=== PATIENT | female | born 1960 | race Caucasian/White ===

== ENCOUNTER 2024-11-02 08:46 | Emergency (ER) | payer OTHER, MEDICARE ==
[~2024-11-02] VITALS: Ht 165.1 cm; Wt 72.7 kg
--- NOTE | 2024-11-02 09:07 | ED.PDOC ---
HPI (NEURO) HPI Comments 64 year old female JERSON presents to the ED with chief complaint of sudden weakness and numbness. EMS reports that the patient had spinal surgery to -4 for spinal stenosis performed on 10/30, being discharged yesterday. EMS relays that the patient had woken up to go to the bathroom this morning about an hour ago when all of a sudden she could not move or feel sensation to her whole body. EMS states patient is now able to move her extremities slightly, but still has decreased sensation. Patient states she currently feels weak at this time and did urinate on herself due to not being able to go to the bathroom. Patient notes her surgery was performed in [place] by Dr. Bullard. Patient denies any dizziness, headache, SOB, chest pain, or blurred vision. 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, Medications, Allergies Information Source: Patient, Emergency Med Personnel Mode of Arrival: EMS Severity: Moderate Dizziness/Weakness Severity: Unable to do activities Timing: Hours Duration: Since onset Prehospital treatment: None Weakness Location: Generalized Numbness Location: Generalized Onset: At rest Circumstances: Spontaneous Symptoms: Weakness, Numbness Before: Normal During: Incontinence (Bladder) After: Normal Mentation Modifying factors: Nothing Past Medical History PAST MEDICAL HISTORY: Denies Surgical History (Other): Spinal stenosis surgery OUTCOMES MANAGER History: Denies all OUTCOMES MANAGER Hx Family History Family History: Reviewed,noncontributory to illness Social History Smoker: Non-Smoker Alcohol: Denies ETOH Use Drugs: Denies Drug Use Lives In: Home Constitutional: denies: chills, diaphoresis, fatigue, fever, malaise, sweats, weakness, others EENTM: denies: blurred vision, double vision, ear bleeding, ear discharge, ear drainage, ear pain, ear ringing, eye pain, eye redness, hearing loss, mouth pain, mouth swelling, nasal discharge, nose bleeding, nose congestion, nose pain, photophobia, tearing, throat pain, throat swelling, voice changes, others Respiratory: denies: cough, hemoptysis, orthopnea, SOB at rest, shortness of breath, SOB with excertion, stridor, wheezing, others Cardiovascular: denies: chest pain, dizzy spells, diaphoresis, Dyspnea on exertion, edema, irregular heart beat, left arm pain, lightheadedness, palpitations, PND, syncope, others Gastrointestinal: denies: abdomen distended, abdominal pain, blood streaked bowels, constipated, diarrhea, dysphagia, difficulty swallowing, hematemesis, melena, nausea, poor appetite, poor fluid intake, rectal bleeding, rectal pain, vomiting, others Genitourinary: denies: abnormal vagina bleeding, burning, dyspareunia, dysuria, flank pain, frequency, hematuria, incontinence, pain, , vagina discharge, urgency, others Neurological: reports: numbness, weakness; denies: dizziness, fainting, headache, left sided numbness, left sided weakness, paresthesia, pre-existing deficit, right sided numbness, right sided weakness, seizure, speech problems, tingling, tremors, others Musculoskeletal: denies: back pain, gout, joint pain, joint swelling, muscle pain, muscle stiffness, neck pain, others Integumetry: denies: bruises, change in color, change in hair/nails, dryness, laceration, lesions, lumps, rash, wounds, others Allergic/Immunocompromised: denies: Difficulty Healing, Frequent Infections, Hives, Itching, others Hematologic/Lymphatic: denies: anemia, blood clots, easy bleeding, easy bruising, swollen glands, others Endocrine: denies: excessive hunger, excessive sweating, excessive thirst, excessive urination, flushing, intolerance to cold, intolerance to heat, unexplained weight gain, unexplained weight loss, others Psychiatric: denies: anxiety, bipolar disorder, depression, hopeless, panic disorder, schizophrenia, sleepless, suicidal, others All Other Systems: Reviewed and Negative Physical Exam General Appearance: No Apparent Distress, Normal, Other (Immobilized) HEENT: Normal ENT Inspection, PERRL/EOMI Neck: Full Range of Motion, Non-Tender, Normal, Normal Inspection, Other (C- Collar in place) Respiratory: Chest Non-Tender, Lungs Clear, No Accessory Muscle Use, No Respiratory Distress, Normal Breath Sounds Cardiovascular: No Edema, No JVD, No Murmur, No Gallop, Normal Peripheral Pulses, Regular Rate/Rhythm Breast Exam: Deferred Gastrointestinal: No Organomegaly, Non Tender, No Pulsatile Mass, Normal Bowel Sounds, Soft Genitalia: Deferred Pelvic: Deferred Rectal: Deferred Extremities: No calf tenderness, Normal capillary refill, Normal inspection, Normal range of motion, Non-tender, No pedal edema Musculoskeletal : Apperance: Normal Neurologic: Alert, sawmilling operator II-XII nml as Tested, Normal Affect, Normal Mood, No Sensory Deficits, Other (Decreased sensation to lower extremities. Able to wiggle her toes. Cannot move feet.) Cerebellar Function: Normal Reflexes: Normal Skin: Dry, Normal Color, Warm Lymphatic: No Adenopathy Was a procedure done? Was a procedure done?: No X-Ray, Labs, Meds, VS Vital Signs Date Time Temp Pulse Resp B/P (MAP) Pulse Ox O2 Delivery O2 Flow Rate FiO2 11/02/24 11:00 80 14 118/48 (71) 94 11/02/24 09:33 77 14 96 Nasal Cannula* 2 28 11/02/24 09:15 74 11/02/24 09:10 97.8 70 14 112/54 (73) 96 97.8 11/02/24 08:57 98.2 91 14 129/81 (97) 96 98.2 Lab Test 11/02/24 09:11 Range/Units White Blood Count 10.2 4.4-10.8 10^3/uL Red Blood Count 4.89 4.0-5.20 10^6/uL Hemoglobin 14.4 12.2-16.2 g/dL Hematocrit 42.9 36.0-46.0 % Mean Corpuscular Volume 87.7 80.0-100.0 fL Mean Corpuscular Hemoglobin 29.4 28.0-32.0 pg Mean Corpuscular Hemoglobin Concent 33.5 32.0-36.0 g/dL Red Cell Distribution Width 13.4 11.8-14.3 % Platelet Count 237 140-450 10^3/uL Mean Platelet Volume 8.1 6.9-10.8 fL Neutrophils (%) (Auto) 83.8 H 37.0-80.0 % Lymphocytes (%) (Auto) 11.1 10.0-50.0 % Monocytes (%) (Auto) 4.7 0.0-12.0 % Eosinophils (%) (Auto) 0.3 0.0-7.0 % Basophils (%) (Auto) 0.1 0.0-2.0 % Neutrophils # (Auto) 8.6 1.6-8.6 10 ^3/uL Lymphocytes # (Auto) 1.1 0.4-5.4 10 ^3/uL Monocytes # (Auto) 0.5 0-1.3 10 ^3/uL Eosinophils # (Auto) 0 0-0.8 10 ^3/uL Basophils # (Auto) 0 0-0.2 10 ^3/uL Nucleated Red Blood Cells 0.0 % Sodium Level 136 136-145 mmol/L Potassium Level 4.3 3.5-5.1 mmol/L Chloride Level 102 98-107 mmol/L Carbon Dioxide Level 28 20-31 mmol/L Anion Gap 6 5-15 Blood Urea Nitrogen 10 9-23 mg/dL Creatinine 0.87 0.550-1.02 mg/dL Glomerular Filtration Rate Calc 75 >90 mL/min BUN/Creatinine Ratio 11.5 10.0-20.0 Serum Glucose 128 H 74-106 mg/dL Calcium Level 9.6 8.7-10.4 mg/dL CT C-Spine: FINDINGS: Postoperative changes of the cervical spine with laminectomy and bilateral transpedicular screw fixation noted at C3-C6 levels. There is straightening of normal lordosis. Reduction disc height and discogenic endplate changes with posterior disc- osteophyte complex formations noted C5-C7 levels and posterior disc bulge C4-C5 level. 3 mm grade 1 anterolisthesis of C7 on T1 noted. Severe posterior facet arthropathy seen at C7-T1. There is no acute fracture . Soft tissue air noted in the paraspinal region. Ill-defined fluid collections noted at the laminectomy site. Prevertebral soft tissues are normal in thickness with no definite fluid collection this limited unenhanced study. Base of the lungs are clear. IMPRESSION: 1. Postoperative changes C3-C6 levels with moderate amount of paraspinal soft tissue air and ill-defined collections of fluid and air at the laminectomy site likely postsurgical in nature such as seroma or hematoma. Evaluation is very limited without IV contrast. If there is clinical concern for abscess, further evaluation with CT scan or MRI with IV contrast could be helpful. Time of 1ST Reevaluation: 10:02 Reevaluation 1ST: Unchanged Patient Education/Counseling: Diagnosis, Treatment Family Education/Counseling: No Family Present Additional Information Previous medical encounters reviewed: None The following tests were ordered, and results were reviewed by me: CT C-Spine, CBC, BMP Additional Information was gathered from interviewing the following independent historians: EMS I reviewed and agreed with the following test results read by other providers: CT C-spine I discussed treatment and results with medical personnel and: Patient Comprehensive systems review obtained and negative except for what is stated in the HPI. Departure 1 Departure Time of Disposition: 11:52 (Discussed the case with the patient's spine surgeon at [facility] who recommended the patient be transferred over there. Patient was accepted to [facility] direct to an inpatient bed.) Impression: Primary Impression: Lower extremity weakness Qualified Codes: R29.898 - Other symptoms and signs involving the musculoskeletal system Additional Impression: H/O cervical spine surgery Disposition: 02 SHORT TERM HOSPITAL Condition: Guarded Critical Care Note Critical Care Time?: No Stability Stability form required: No Heart Score Heart Score: Heart Score Response (Comments) Value History N/A 0 EKG N/A 0 Age N/A 0 Risk Factors N/A 0 Troponin N/A 0 Total 0 I personally scribed for JOEY ALMEIDA MD ([email or web address]) on 11/02/24 at 09:07. Electronically submitted by Castro Robertson ([email or web address]). I personally scribed for JOEY ALMEIDA MD ([email or web address]) on 11/02/24 at 09:53. Electronically submitted by aCstro Robertson ([email or web address]). JOEY ALMEIDA MD Nov 02, 2024 09:07
[2024-11-02 09:33] VITALS: PULSE 77; RESP 14; O2SAT 96
[2024-11-02 09:33] LABS: Basophils # (auto) 0 10 ^3/uL (0-0.2); Basophils % (auto) 0.1 % (0.0-2.0); Chloride 102 mmol/L (98-107); Eosinophils # (auto) 0 10 ^3/uL (0-0.8); Eosinophils % (auto) 0.3 % (0.0-7.0); Hematocrit 42.9 % (36.0-46.0); Hemoglobin 14.4 g/dL (12.2-16.2); Lymphocytes # (auto) 1.1 10 ^3/uL (0.4-5.4); Lymphocytes % (auto) 11.1 % (10.0-50.0); Mean Corpuscular Hemoglobin 29.4 pg (28.0-32.0); Mean Corpuscular Hgb Conc. 33.5 g/dL (32.0-36.0); Mean Corpuscular Volume 87.7 fL (80.0-100.0); Monocytes # (auto) 0.5 10 ^3/uL (0-1.3); Monocytes % (auto) 4.7 % (0.0-12.0); Neutrophils # (auto) 8.6 10 ^3/uL (1.6-8.6); Neutrophils % (auto) 83.8 % (37.0-80.0); Platelet Count (auto) 237 10^3/uL (140-450); Potassium 4.3 mmol/L (3.5-5.1); Red Blood Cells 4.89 10^6/uL (4.0-5.20); Red Cell Distribution Width 13.4 % (11.8-14.3); Sodium 136 mmol/L (136-145); White Blood Cell 10.2 10^3/uL (4.4-10.8)
[2024-11-02 09:34] LABS: Anion Gap 6 (5-15); Calcium 9.6 mg/dL (8.7-10.4); Carbon Dioxide 28 mmol/L (20-31)
[2024-11-02 09:39] LABS: BUN/Creatinine Ratio 11.5 (10.0-20.0); Blood Urea Nitrogen 10 mg/dL (9-23)
[2024-11-02 09:41] LABS: Glucose 128 mg/dL (74-106)
--- NOTE | 2024-11-02 09:51 | DVH ---
Procedure: CT CERVICAL WITHOUT CONTRAST 11/02/2024 09:17 AM Indication: cervical surgery this week, cant move legs Comparison Study: None. Technique: Axial images were obtained and reformatted in coronal and sagittal planes. All CT scans at this medical facility are performed using dose modulation techniques as appropriate t o a performed exam including the following: Automated exposure control was utilized; adjustment of th e MA and/or KV according to patient size; and use of iterative reconstruction technique. CT Dose: CTDI volume is 25 mGy. Dose-length product is 626 mGy*cm FINDINGS: Postoperative changes of the cervical spine with laminectomy and bilateral transpedicular screw fixat ion noted at C3-C6 levels. There is straightening of normal lordosis. Reduction disc height and di scogenic endplate changes with posterior disc- osteophyte complex formations noted C5-C7 levels and p osterior disc bulge C4-C5 level. 3 mm grade 1 anterolisthesis of C7 on T1 noted. Severe posterior fac et arthropathy seen at C7-T1. There is no acute fracture . Soft tissue air noted in the paraspinal region. Ill-defined fluid collections noted at the laminectomy site. Prevertebral soft tissues are n ormal in thickness with no definite fluid collection this limited unenhanced study. Base of the lung s are clear. IMPRESSION: 1. Postoperative changes C3-C6 levels with moderate amount of paraspinal soft tissue air and ill-defi zonia collections of fluid and air at the laminectomy site likely postsurgical in nature such as serom a or hematoma. Evaluation is very limited without IV contrast. If there is clinical concern for abs cess, further evaluation with CT scan or MRI with IV contrast could be helpful.
[2024-11-02] MEDS: HYDROcodone-ACET 5/325MG TAB PO ONE ×2 (15:09→17:27)
[2024-11-02 19:20] VITALS: PULSE 70; RESP 12; O2SAT 96
[2024-11-02 22:32] VITALS: BP 116/65; PULSE 70; RESP 16; TEMP 99.3; O2SAT 95
== END 2024-11-02 10:42 | disposition short-term general hospital (02) ==
LOC: ER 08:46 → EDBD 08:46 → ER 10:42
DX: R53.1 Weakness (principal); R20.0 Anesthesia of skin; Z98.890 Other specified postprocedural states
CPT/HCPCS: 36415; 72125; 80048; 85025